=== PATIENT | female | born 1965 | race Caucasian/White ===

== ENCOUNTER 2017-03-25 18:08 | Emergency (ER) | payer OTHER ==
[~2017-03-25] VITALS: Ht 170.2 cm; Wt 154.2 kg
[~2017-03-25 18:08] MED LIST: CLONAZEPAM; CLONAZEPAM 1 MG1 M1 PO; CYMBALTA60 MG PO; HYDROCODONE-AP1 EAC6 PO; LAMICTAL; LAMICTAL100 MG PO; LASIX 20 MG TAB20 MG PO; LEXAPRO; LISINOPRIL20 MG PO; LOPRESSOR25 PO; MAXALT; MAXALT MLT ODT10 M1 PO; MEDROL DOSPAK21 TA1 PO; MOBIC7.5 MG PO; NAPROSYN500 MG PO; NORCO 5-325 TA1 EACH PO
[2017-03-25 18:52] LABS: URINE BLOOD 3+ (Negative); URINE CLARITY CLEAR; URINE COLOR DARK YELLOW; URINE GLUCOSE-RANDOM TRACE (Negative); URINE KETONES 1+ (Negative); URINE LEUKOCYTES-REFLEX 1+ (Negative); URINE PROTEIN 3+ (Negative); URINE UROBILINOGEN >= 8.0 E.U./dl (0.2-1.0)
[2017-03-25 18:55] LABS: URINE BILIRUBIN 2+ (Negative); URINE NITRITE-REFLEX POSITIVE (Negative)
[2017-03-25 18:56] LABS: ICTOTEST (BILI CONFIRMATORY) Negative (Negative)
[2017-03-25 18:58] LABS: SQUAMOUS 0-3 Few /LPF (0-3); URINE RBC >20 Many /HPF (0-2); URINE WBC-REFLEX >25 Many /HPF (0-5)
[2017-03-25 18:59] LABS: CASTS None Seen /LPF (None Seen); CRYSTALS None Seen /LPF (None Seen)
[2017-03-25] MEDS ORDERED: CIPRO500 M1 PO (19:03)
[2017-03-25] MEDS ORDERED: PYRIDIUM200 MG PO (19:05)
[2017-03-25] MEDS ORDERED: IBUPROFEN 800800 M1 PO (19:05)
[2017-03-25 19:24] VITALS: BP 168/70
== END 2017-03-25 19:25 | disposition home or self-care (01) ==
LOC: M.ERS 18:08
PROVIDERS: Nurse Practitioner
DX: N39.0 Urinary tract infection, site not specified (principal); G43.909 Migraine, unspecified, not intractable, without status migrainosus; Z88.8 Allergy status to other drugs, medicaments and biological substances

== ENCOUNTER 2019-01-17 11:14 | Inpatient (IN) | payer OTHER ==
[2019-01-05 09:14] LABS: ABSOLUTE BASOPHILS 0.1 thou/uL (0.0-0.2); ABSOLUTE EOSINOPHILS 0.2 thou/uL (0.0-0.7); ABSOLUTE LYMPHOCYTES 2.3 thou/uL (0.8-5.3); ABSOLUTE MONOCYTES 0.5 thou/uL (0.0-1.2); ABSOLUTE NEUTROPHILS 2.3 thou/uL (1.6-8.1); BASOPHILS 1.2 %; EOSINOPHILS 3.8 %; HEMATOCRIT 42.4 % (37.0-47.0); HEMOGLOBIN 14.4 gm/dL (12.0-15.0); LYMPHOCYTES 43.2 %; MCH 31.6 pg (26.0-34.0); MCV 92.9 fL (80.0-100.0); MONOCYTES 9.5 %; MPV 6.9 fl. (7.2-11.1); NUCLEATED RBCS 0 /100WBC; PLATELET COUNT* 270 thou/uL (150-400); POLYS 42.3 %; RBC 4.56 mil/uL (4.20-5.00); RDW-CV 12.5 % (10.5-14.5); WBC 5.4 thou/uL (4.0-11.0)
[2019-01-05 09:28] LABS: CALCIUM 8.9 mg/dL (8.5-10.1); CREATININE 0.8 mg/dL (0.6-1.3); POTASSIUM 3.9 mmol/L (3.5-5.1)
[2019-01-05 09:35] LABS: ALBUMIN 3.8 g/dL (3.4-5.0); TOTAL BILIRUBIN 0.3 mg/dL (<0.1-1.0); TOTAL PROTEIN 7.1 g/dL (6.4-8.2)
[2019-01-05 09:52] LABS: APTT 26.6 Seconds (25.0-31.3); PROTIME 10.1 Seconds (9.20-11.50)
[2019-01-05 10:32] LABS: ESR (SEDRATE) 5 mm/hr (0-30)
--- NOTE | 2019-01-05 11:08 | EKG ---
[place] [address] ELECTROCARDIOGRAM REPORT Name: BECKY FLORES Room: PRE [facility]#: [id number] Admission: Attend Phys: Arturo Bill DO Discharge: Date of : 69 Report #: [id number] THIS REPORT FOR: //name// [facility] Test Date: 2019-01-05 Test Time: 09:34:29 Pat Name: BECKY FLORES Department: Room: Gender: F Piping Designer: PARKER : 1965 Requested By: Arturo Bill Order Number: [id number] Reading MD: Jesus Murphy Measurements Intervals Edgar Rate: 56 P: 52 AR: 217 QRS: -25 QRSD: 171 T: 89 QT: 493 QTc: 476 Interpretive Statements Sinus rhythm Prolonged AR interval Left bundle branch block No previous ECG available for comparison Electronically Signed On 01-05-2019 11:08:33 [employer] by Jesus Murphy [email or web address] <ELECTRONICALLY SIGNED> By: Jesus Murphy MD, [facility] 01/05/19 1108 0934 0934 Jesus Murphy MD, FACC /EPI
[2019-01-06 06:11] LABS: GLYCOHEMOGLOBIN (HGB A1C) 5.2 % (4.8-5.6)
[~2019-01-17] VITALS: Ht 167.6 cm; Wt 104.3 kg
[~2019-01-17 11:14] MED LIST changes: +CARVEDILOL12.5 MG PO; +CIPRO500 M1 PO; +COREG6.25 MG PO; +IBUPROFEN 800800 M1 PO; +OMEPRAZOLE 20 M20 M1 PO; +PYRIDIUM200 MG PO; +TYLENOL EXTRA500 MG PO
[2019-01-17 16:35] VITALS: BP 133/70
[2019-01-17 19:45] VITALS: BP 112/74
[2019-01-17 23:50] VITALS: BP 112/66
[2019-01-18 01:42] LABS: URINE BILIRUBIN NEGATIVE (Negative); URINE BLOOD NEGATIVE (Negative); URINE CLARITY CLEAR; URINE COLOR YELLOW; URINE GLUCOSE-RANDOM NEGATIVE (Negative); URINE KETONES NEGATIVE (Negative); URINE LEUKOCYTES-REFLEX NEGATIVE (Negative); URINE NITRITE-REFLEX NEGATIVE (Negative); URINE PROTEIN NEGATIVE (Negative); URINE UROBILINOGEN 0.2 E.U./dl (0.2-1.0)
[2019-01-18 04:29] VITALS: BP 120/59
[2019-01-18 05:09] LABS: HEMATOCRIT 37.1 % (37.0-47.0); HEMOGLOBIN 12.5 gm/dL (12.0-15.0)
[2019-01-18 07:30] VITALS: BP 106/55
--- NOTE | 2019-01-18 08:26 | OP ---
[address] [address] OPERATIVE REPORT Name: MARKBECKY Room: [address]#: [id number] Admission: 01/17/19 Attend Phys: Nadia Avalos Discharge: Date of : 69 Report #: [id number] THIS REPORT FOR: //name// CC: Fatimah Jerez DATE OF SERVICE: 01/17/2019 PREOPERATIVE DIAGNOSIS: Severe osteoarthritis of the left knee, tricompartmental in nature varus deformity. POSTOPERATIVE DIAGNOSIS: Severe osteoarthritis of the left knee, tricompartmental in nature varus deformity. SURGERY PERFORMED: Luisito cemented Persona 3 component, left total knee arthroplasty; femur 7, tibia E, patella 32, polyethylene 13. SURGEON: Arturo Bill DO CLOTHING MANAGER: Morris. [facility] [employer] ASSISTANT[employer] TEACHER: Des ____. ANESTHESIA: General anesthetic plus an adductor block. ANTIBIOTICS: The patient did receive Ancef 2 g IV piggyback preoperatively. DRAINS: None. SPECIMENS: None. COMPLICATIONS: None. ESTIMATED BLOOD LOSS: 200 mL. GROSS FINDINGS: The patient prior to surgery demonstrated failed conservative care measures of the left knee osteoarthritis and intraoperatively correlated equally with her radiographs of the standing knee x-rays. She has severe tricompartmental osteoarthritis, multiple osteophytes throughout the knee in all compartments. Post placement of the left total knee arthroplasty, she had a well-placed and well-aligned excellent stable arc of motion in extension, flexion and mid flexion. SURGERY IN DETAIL: The patient was taken to the operating room, given a general anesthetic. Prior to that, had adductor nerve block applied by Anesthesia. A well-padded tourniquet was placed high on the left leg. [place] [address] OPERATIVE REPORT Name: BECKY FLORES [address] [id number] Admission: 01/17/19 Attend Phys: Nadia Avalos Discharge: Date of : 69 Report #: [id number] for cementing purposes of 26 minutes. Surgery now continued at this point in time with Hibiclens scrub and chlorhexidine prep and sterile draping for left knee surgery. Timeout was called and verified by everyone in the room for the left knee. At this point in time, surgery began with a 10 blade scalpel through skin and subcutaneous tissues, maintaining hemostasis at all times. A second medial parapatellar capsular incision was made with a new blade. The patella was everted, knee flexed 90 degrees, again maintaining hemostasis. Distal femoral drill hole was made in routine fashion followed with placement of the femoral distal cutting guide into position at a 5-degree angle for the left knee. Distal femur was cut with the oscillating saw, pins were removed and the block was removed. I now went down to the tibia side. The external guide was placed across the ankle, secured proximally in place, measuring off the high side with the depth stylus. Once that block was secured in place, a wafer of tibial bone was cut in routine fashion and the entire wafer of bone was removed. I did go ahead and the same time removed the medial and lateral meniscus remnants that were evident. Extension block was placed in the knee now demonstrating excellent extension with full stability in the medial and lateral planes as well. All pins were now removed. We went back and sized the femur, appropriately was sized to a 7. The drill holes were made at the 3-degree angle and the 4-in-1 block was applied, size 7 to the left knee region. All cuts were now made with the oscillating saw. All the cutting bone was now removed. Once the femur was addressed and finished, I did place a small plug of bone within that drill hole for the distal cutting guide. At this point in time, went back to the tibia, sized it appropriately, knee fit very well [id number] and on the tibial plateau region it was secured in place with small screws. I then went back and put the [address], tamped it in position, trialed her with a 10 polyethylene trial and it tracked well. Surgery now continued at this point in time with preparing the patella for cutting technique using the Luisito reamer. The patella was now cut and sized to a 32, it was appropriately drilled. The component was applied and tracked well. At this point in time, the distal femoral drill holes were made. I now esmarched this extremity and inflated the tourniquet to 300 mmHg. Surgery now also continued with this patient removing all the femoral components, the polyethylene trial and I did go ahead and reamed the tibia for the stem as well as the cruciform cut was made as well and tamped into position. The tibial baseplate was removed. I prepared it for cementing technique, one stage pulsatile lavage, irrigated the entire left knee region. Using cement now, the tibia was tamped into appropriate position as the excess cement was removed. I went ahead and also cemented the femoral component into position, removing all excess cement. The patella likewise was clamped into position, removing the cement and I stretched her and compressed her with a 13 mm polyethylene. At this point in time, we held the leg in extension until cement had hardened. Once cement had hardened, I did go ahead and placed her through a full arc of motion, extension, mid flexion and flexion, tested the stability and it was stable in all those 3 planes. I elected to at this time remove that 13 trial component and washed out the knee again one more time prior to placement of the polyethylene and now a 13 [place] [address] OPERATIVE REPORT Name: BECKY FLORES [address] [id number] Admission: 01/17/19 Attend Phys: Nadia Avalos Discharge: Date of : 69 Report #: [id number] seated and clicked into the tibia tray. The knee was reduced. TXA solution was placed in the knee at this point in time for 3 minutes, followed with tourniquet release. Again, hemostasis easily maintained. I did the pulsatile lavage, washed one last time, closed the capsule with 1 Vicryl, 1 Ticron in [id number] fashion. The subcutaneous tissue was closed with inverted 2-0 Monocryl, running Stratafix and Dermabond to the skin with Mepilex dressing. A long GLADYS hose was applied. The patient was transferred off the table, taken to recovery in stable condition. I was present for all critical aspects of surgery. Needle, instrument, sponge counts correct. <ELECTRONICALLY SIGNED> By: Arturo Bill DO 01/18/19 0826 [id number] [id number] jose Ojeda
[2019-01-18 10:29] VITALS: BP 106/55
[2019-01-18] MEDS ORDERED: OXYCODONE HCL 55 MG PO (11:20)
[2019-01-18] MEDS ORDERED: TRAMADOL 50 MG50 MG PO (11:21)
[2019-01-18] MEDS ORDERED: ELIQUIS2.5 MG PO (11:21)
[2019-01-18 17:52] VITALS: BP 106/55
[2019-01-18 20:00] VITALS: BP 104/38
[2019-01-19] VITALS: BP 111/53
[2019-01-19 04:00] VITALS: BP 102/49
[2019-01-19 04:03] LABS: HEMATOCRIT 29.6 % (37.0-47.0)
[2019-01-19 04:09] LABS: HEMOGLOBIN 10.2 gm/dL (12.0-15.0)
[2019-01-19 14:19] VITALS: BP 106/55
== END 2019-01-19 16:15 | disposition home or self-care (01) | DRG 470 ==
LOC: M.SUR 11:14 → M.TBA 14:34 → M.ORTHSURG 16:10
PROVIDERS: Orthopaedic Surgery; ADMIT Internal Medicine
PROC: 0SRD0J9 Replacement of Left Knee Joint with Synthetic Substitute, Cemented, Open Approach (ICD-10-PCS; principal; 2019-01-17)
DX: M17.12 Unilateral primary osteoarthritis, left knee (principal); I42.0 Dilated cardiomyopathy; D62 Acute posthemorrhagic anemia; E89.0 Postprocedural hypothyroidism; K21.9 Gastro-esophageal reflux disease without esophagitis; F32.9 Major depressive disorder, single episode, unspecified; F41.9 Anxiety disorder, unspecified; Z88.8 Allergy status to other drugs, medicaments and biological substances; Z90.49 Acquired absence of other specified parts of digestive tract; Z90.710 Acquired absence of both cervix and uterus

== ENCOUNTER → 2020-07-30 | Outpatient (CLI) | payer OTHER ==
[~2020-07-30] MED LIST changes: +AUGMENTIN 875-1 EACH PO; +ELIQUIS2.5 MG PO; +OXYCODONE HCL 55 MG PO; +SPIRONOLACTONE25 MG PO; +TESSALON PERLE100 MG PO; +TRAMADOL 50 MG50 MG PO; +VENTOLIN HFA 1818 GM INH
[2020-07-30 10:12] LABS: ABSOLUTE BASOPHILS 0.1 thou/uL (0.0-0.2); ABSOLUTE EOSINOPHILS 0.2 thou/uL (0.0-0.7); ABSOLUTE LYMPHOCYTES 3.1 thou/uL (0.8-5.3); ABSOLUTE MONOCYTES 0.7 thou/uL (0.0-1.2); ABSOLUTE NEUTROPHILS 3.7 thou/uL (1.6-8.1); EOSINOPHILS 3.1 %; HEMATOCRIT 42.4 % (37.0-47.0); HEMOGLOBIN 14.2 gm/dL (12.0-15.0); LYMPHOCYTES 39.8 %; MCH 31.5 pg (26.0-34.0); MCHC 33.6 g/dL (28.0-37.0); MCV 93.7 fL (80.0-100.0); MONOCYTES 8.5 %; MPV 6.9 fl. (7.2-11.1); NUCLEATED RBCS 0 /100WBC; PLATELET COUNT* 308 thou/uL (150-400); POLYS 47.6 %; RBC 4.52 mil/uL (4.20-5.00); RDW-CV 13.3 % (10.5-14.5); WBC 7.8 thou/uL (4.0-11.0)
[2020-07-30 10:31] LABS: CALCIUM 8.6 mg/dL (8.5-10.1); CREATININE 0.7 mg/dL (0.6-1.3); POTASSIUM 4.9 mmol/L (3.5-5.1); TOTAL BILIRUBIN 0.3 mg/dL (<0.1-1.0); TOTAL PROTEIN 7.1 g/dL (6.4-8.2)
--- NOTE | 2020-07-30 12:15 | EKG ---
[place] [address] ELECTROCARDIOGRAM REPORT Name: BECKY FLORES Room: [facility]#: [id number] Admission: 07/30/20 Attend Phys: Arturo Bill DO Discharge: Date of : 69 Date of Service: 07/30/20 1025 Report #: [id number] THIS REPORT FOR: //name// [facility] Test Date: 2020-07-30 Test Time: 10:25:12 Pat Name: BECKY FLORES Department: Room: Gender: F High Speed Operator: : 1965 Requested By: Arturo Bill Order Number: [id number] Reading MD: Jesus Murphy Measurements Intervals [place] Rate: 58 P: 48 TN: 218 QRS: -36 QRSD: 169 T: 93 QT: 507 QTc: 499 Interpretive Statements Sinus rhythm Prolonged TN interval Left bundle branch block Compared to ECG 06/23/2020 12:39:55 First degree AV block now present Electronically Signed On 07-30-2020 12:15:42 CDT by Jesus Murphy [email or web address] <ELECTRONICALLY SIGNED> By: Jesus Murphy MD, [facility] 07/30/20 1215 1025 1025 Jesus Murphy MD, [facility] /EPI
[2020-07-31 02:06] LABS: GLYCOHEMOGLOBIN (HGB A1C) 5.5 % (4.8-5.6)
== END ==
LOC: M.LAB 09:48
PROVIDERS: ATTEND Orthopaedic Surgery
DX: M17.11 Unilateral primary osteoarthritis, right knee (principal)

== ENCOUNTER 2020-08-06 06:11 | Observation (INO) | payer OTHER ==
[~2020-08-06] VITALS: Ht 167.6 cm; Wt 113.4 kg
[2020-08-06 06:40] VITALS: BP 125/69
[2020-08-06 13:20] VITALS: BP 112/64
--- NOTE | 2020-08-06 16:18 | NUR ---
PATIENT ADMITTED FROM PACU TO ROOM 108 THIS AFTERNOON. ALERT AND ORIENTED X 4. RIGHT KNEE REPLACMENT, DRESSING D/I. ICE PACK TO RIGHT KNEE AND SCD'S AND TEDS IN PLACE. IVF AND SCHED ABX INFUSING ORDERED. PATIENT VOIDED FIRST TIME VIA BEDPAN PER REQUEST. PRN OXY IR GIVEN X 1 THIS AFTERNOON PER APR ORDERS, GOOD RELIEF NOTED.
[2020-08-06 16:32] VITALS: BP 117/60
[2020-08-06 22:56] VITALS: BP 139/70
[2020-08-07] VITALS: BP 135/67
[2020-08-07 04:39] LABS: CALCIUM 8.1 mg/dL (8.5-10.1); CREATININE 0.7 mg/dL (0.6-1.3); POTASSIUM 3.8 mmol/L (3.5-5.1)
[2020-08-07 04:48] LABS: HEMATOCRIT 35.5 % (37.0-47.0)
[2020-08-07 07:10] VITALS: BP 117/37
--- NOTE | 2020-08-07 07:13 | OP ---
[address] [place] [address] OPERATIVE REPORT Name: BECKY FLORES Room: [address] M[address]R.#: [id number] Admission: 08/06/20 Attend Phys: Nadia Avalos Discharge: Date of : 69 Report #: [id number] THIS REPORT FOR: cc: Fatimah Dutta Linda J. DO Orth,Arturo MADSEN ~ DOC #: [id number] Spencer Davila DO DATE OF SURGERY: 08/06/2020 PREOPERATIVE DIAGNOSIS: Right knee degenerative joint disease. POSTOPERATIVE DIAGNOSIS: Right knee degenerative joint disease. PROCEDURES: Right total knee arthroplasty utilizing the Luisito Persona total knee system with the following components: 1. Size 7 standard cruciate retaining cemented femur. 2. A size E cemented natural tibial baseplate. 3. A 12 mm medial congruent poly. 4. A 32 mm all poly patella. 5. Two bags of Biomet cement. SURGEON: Arturo Bill DO FIRST ASSISTANTS: 1. Spencer Davila DO. 2. Raymond Handley DO. ANESTHESIA: General and regional block by anesthesia. FLUIDS: Crystalloid per anesthesia. ESTIMATED BLOOD LOSS: 250 mL DRAINS: None. SPECIMENS: None. COMPLICATIONS: None. CONDITION: Stable to PACU. DISPOSITION: Recovery in the PACU and transferred to the floor. ANTIBIOTICS: 2 grams Ancef IV preop. Cecil'[address] [address] OPERATIVE REPORT Name: BECKY FLORES Room: [address] [place]#: [id number] Admission: 08/06/20 Attend Phys: Nadia Avalos Discharge: Date of : 69 Report #: [id number] INDICATIONS FOR PROCEDURE: The patient is a very pleasant 54-year-old female who presented to our clinic with longstanding right knee pain. She failed conservative measures including injections, medications, activity modifications, and weight loss. We discussed right total knee arthroplasty. The risks, benefits, alternatives and possible complications were discussed at length including but not limited to pain, stiffness, infection, need for repeat surgery, neurovascular injury, ligamentous injury, DVT, PE, , and anesthetic complications. She expressed her understanding and wished to proceed. She underwent left total knee arthroplasty previously and has done well with this. INTRAOPERATIVE FINDINGS: Upon evaluation of the knee intraoperatively after making our arthrotomy, she was found to have severe tricompartmental degenerative joint disease with a full-thickness cartilage loss, eburnation, and large osteophytes tricompartmentally. Synovial fluid and tissue was otherwise normal in appearance. DESCRIPTION OF PROCEDURE: The patient was met in the preoperative area. The correct site was marked. Consent was obtained both verbally and written. She was transferred to the operative suite and given the benefit of general anesthetic. A well-padded tourniquet was applied to the right upper thigh. The right lower extremity was then prepped and draped in the usual sterile fashion. She was secured to the table and all bony prominences were well padded. We then performed a timeout to verify the correct patient, procedure, and operative site. All in the room were in agreement. The procedure began with a standard anterior midline incision down to the level of the capsule, at which point, a medial parapatellar arthrotomy was made. The patella was then everted. We debrided the fat pad. We created our medial sleeve off the proximal tibia subperiosteally. At this point, we then utilized the Esmarch to exsanguinate the leg followed by elevation of the tourniquet to 300 mmHg, this was elevated for approximately 45 minutes. This was done to maximize visualization and for a clean field for the cementation process. We then used the femoral drill to gain access to the intramedullary canal. We then used the intramedullary distal femoral cutting block. We took an extra millimeter off the distal femur given an extension lag noted preoperatively. The distal femoral cutting block was pinned into place and the distal femur cut was made. We then turned our attention to the proximal tibial cut. We used the extramedullary guide, lining this up with the center of the tibial plateau, medial 1/3rd of the tibial tubercle down the tibial crest and center of the ankle. We dialed in the appropriate coronal alignment and posterior slope. The proximal tibial cutting block was set at 10 mm off of the high lateral side. The block was then pinned in place and the proximal tibial cut was made without difficulty. We then brought the leg into extension and placed our spacer block, which ensured adequate bony resection and a balanced extension gap. [place] [address] OPERATIVE REPORT Name: BECKY FLORES Room: [address] Rian AdameRElias#: [id number] Admission: 08/06/20 Attend Phys: Nadia Avalos Discharge: Date of : 69 Report #: [id number] attention back to the femur. The AP sizer was used to measure the femur appropriately. The appropriate 4-in-1 cutting block was malleted into place with 3 degrees of external rotation based off of the transepicondylar axis. The cutting block was then pinned into place and anterior, posterior and chamfer cuts were then made. The excess bone was then removed. We then used the curved osteotome to remove the posterior femoral condyle osteophytes. We used the Bovie to resect residual ACL, PCL and medial and lateral menisci. We then placed the appropriate sized trial tibia and pinned this into place with the appropriate rotation. We then malleted the trial femur into place. We then placed a trial articular spacer. She was found to have full extension and flexion up to 130 degrees. She had good flexion and extension gaps and excellent stability throughout mid flexion and deep flexion. We then turned our attention to the patella, which we cut in a freehand fashion. We drilled 3 peg holes in preparation for the final patellar component. A trial patellar component tracked well through the trochlear groove. We then drilled through the femoral trial in preparation for the pegs on the final femoral component. We then removed the trial femur and patella and articular spacer. We then reamed and punched for the tibial keel. The trial tibial was removed. The bony ends were thoroughly irrigated. We drilled 4 small holes on the medial tibial plateau, which was sclerotic to aid with cement interdigitation. Cement was mixed on the back table. Final components were placed on the back table. We then impacted the final tibial and femoral components and placed a size 12 trial spacer and compressed. Excess cement was removed. We then placed the final patellar component and clamped this into place and removed excess cement. We allowed the cement to cure. Once this was done, we took the knee through range of motion with a size 12 poly and was found to have full extension and flexion up to 130 degrees with excellent stability throughout flexion including mid flexion and deep flexion. The trial poly was then removed. We thoroughly irrigated again and ensured that we had removed all excess cement from the posterior aspect of the knee. The final 12 mm medial congruent articular spacer was placed with an audible and palpable click onto the tibial tray. She again was found to have excellent range of motion with full extension and good stability. We then thoroughly irrigated. The tourniquet was let down and hemostasis was obtained with electrocautery. We injected the orthopedic pain cocktail about the periosteum and posterior capsule. The capsule was closed with #1 Vicryl in [id number]-cp-cpsdh fashion. We used an Ethibond suture at the superior aspect of the patellar capsule repair. The subcutaneous tissue was reapproximated with 2-0 Monocryl suture in simple interrupted inverted fashion followed by running 3-0 Stratafix subcuticularly. We placed Dermabond glue on the skin and allowed this to dry. We then placed a sterile Mepilex dressing followed by GLADYS diallo. The patient tolerated the procedure well and was transferred to the PACU in stable condition without complications. Needle and sponge counts were correct x 2 at the end of the case. Dr. Bill, was present and scrubbed throughout all critical [place] [address] OPERATIVE REPORT Name: BECKY FLORES Room: [address] Rian Garnett#: [id number] Admission: 08/06/20 Attend Phys: Nadia Avalos Discharge: Date of : 69 Report #: [id number] DO SCOTT Ch[place] <ELECTRONICALLY SIGNED> By: Arturo Bill DO 08/07/20712 2 1101CDO jose Awan
--- NOTE | 2020-08-07 07:38 | NUR ---
ASSUMED CARE OF PT 08/06/20 AT APPROX 1915. PT A&OX4, VSS ON 3L NC, CAPNO IN USE. PT UP WITH ASSIST TO BSC. PO AND IV PAIN MEDS REQUESTED AND GIVEN ORDERED. NO CO NAUSEA. REPORT GIVEN AND CARE TRANSFERED TO DAY SHIFT NURSE AT APPROX 0720.
--- NOTE | 2020-08-07 09:04 | NUR ---
PT LIVES AT HOME WITH SPOUSE WHO WAS AT BEDSIDE. PT HAS WALKER, SEAT RISER AND CRUTCHES FROM PREVIOUS KNEE SX. PT IS CURRENTLY GOING TO OUTPATIENT THERPAY FOR KNEE, BUT IS CONSIDERING HH FOR CURRENT KNEE AND RESUMING OUTPATIENT THERAPY AT A LATER DATE. CM ADVISED RN FROM WILL COME TO SPEAK WITH HER, PT HAS NO OTER PREFERENCE FOR HH AT THIS TIME. PT IS FT EMPLOYEE, DRIVES AND INDEPENDENT WITH ADLS. CM TO CONT TO FOLLOW.
--- NOTE | 2020-08-07 12:37 | NUR ---
Script called into pharmacy on file. Eliquis 2.5mg PO BID x 14 days for DVT ppx. To dispense quantity of 28 with no refills. Per pharmacy, no charge for patient. SW updated.
[2020-08-07 15:57] VITALS: BP 145/59
--- NOTE | 2020-08-07 17:18 | NUR ---
PT REMAINED ALERT AND ORIENTED. PAIN UNCONTROLLED THIS MORNING, PAIN MEDICATION CHANGED AND PAIN TOLERABLE AT THIS TIME. COMPLAINT PLACED IN WITH PATIENT EXPERIENCE REGARDING NIGHT NURSE. PT WORKED WITH THERAPY. UP TO CHAIR FOR COUPLE HOURS THIS AFTERNOON. FALL RISK PRECAUTIONS IN PLACE. HOURLY ROUNDING COMPLETED.
[2020-08-07 20:00] VITALS: BP 138/60
[2020-08-07 23:40] VITALS: BP 132/78
[2020-08-08 03:39] VITALS: BP 108/64
[2020-08-08 05:04] LABS: HEMATOCRIT 31.1 % (37.0-47.0); HEMOGLOBIN 10.8 gm/dL (12.0-15.0)
--- NOTE | 2020-08-08 05:28 | NUR ---
PT SLEPT OFF AND ON, HAS HAD BETTER PAIN CONTROL TONIGHT VS LAST NIGHT ALTERNATING IV AND PO PAIN MEDS AVAILABLE. UP WITH GB WALKER AND MIN ASSIST TO BSC TO VOID SEVERAL TIMES OVERNIGHT. GLADYS PETERSEN BLE. EDINSON MOCTEZUMA CDI, USING ICE PACK PRN, SOME BRUISING NOTED-UNCHANGED FROM BEGINNING OF SHIFT. SCDS BLE. LFA SL IV. AM LABS. ABLE TO USE CALL LITE AND MAKE NEEDS KNOWN. HOPEFUL FOR DISCHARGE HOME TODAY.
[2020-08-08 07:10] VITALS: BP 120/71
[2020-08-08] MEDS ORDERED: ELIQUIS5 MG PO (12:10)
[2020-08-08 12:17] VITALS: BP 120/71
--- NOTE | 2020-08-08 12:17 | NUR ---
Pt medically stable to dc to home today with [facility]. Orders to be faxed. in room and will transport.
[2020-08-08 14:30] VITALS: BP 120/71
--- NOTE | 2020-08-08 15:51 | NUR ---
DC orders written, Pt required Iv pain meds. Walked well with therapies. DC home with [facility] when ready
--- NOTE | 2020-08-08 15:54 | NUR ---
[facility] dc note: Met with patient and and they reveal they changed their minds and want to have outpatient therapy vs hh to do the therapy. Cancelled the referral to [facility],
--- NOTE | 2020-08-08 16:05 | NUR ---
PT GIVEN PRESCRIPTIONS, IV REMOVED, PT BELONGINGS GATHERED. PT LEFT VIA WHEELCHAIR WITH NURSING STAFF TO HOME WITH OUTPATIENT THERAPY.
== END 2020-08-08 16:06 | disposition home health service (06) ==
LOC: M.ORTHSURG → M.TBA 06:11 → M.ORTHSURG 06:11 → M.TBA 06:11 → M.ORTHSURG 09:07 → EDSTATUS 11:55 → M.ORTHSURG 12:10
PROVIDERS: Family Medicine; Orthopaedic Surgery; ADMIT Internal Medicine; ATTEND Internal Medicine
DX: M17.11 Unilateral primary osteoarthritis, right knee (principal); I10 Essential (primary) hypertension; F32.9 Major depressive disorder, single episode, unspecified; F41.9 Anxiety disorder, unspecified; Z98.84 Bariatric surgery status; Z79.899 Other long term (current) drug therapy